=== PATIENT | female | born 1990 ===

== ENCOUNTER 2021-12-06 16:16 | Emergency (ER) | payer OTHER ==
--- NOTE | 2021-12-06 17:34 | XRay Report ---
Right hand 2 views INDICATION: Right hand pain. IMPRESSION: There is a focal laceration involving the left fifth finger. No underlying fracture or minaya bluxation is identified. Signer Name: Abraham Akins MD Signed: 12/06/2021 5:30 PM Workstation Name: [id number]
[2021-12-06] MEDS ORDERED: BUPIVACAINE/PF (0.5%) 5 MG/1 ML 10 ML VIAL INFILTRATI ONE (22:06)
--- NOTE | 2021-12-06 23:46 | Emergency Department Report ---
ED Laceration HPI - HPI Chief Complaint: Laceration/Recheck/Suture Stated Complaint: CUT FINGER Time Seen by Provider: 12/06/21 21:58 Occurred When: Today Location: Upper Extremity Severity: mild Tetanus Status: Up to Date Laceration Symptoms: Yes Pain Other History: Presents emerged department after accidentally cutting the palm of the fifth phalange E with a knife. ED Review of Systems ROS: Stated complaint: CUT FINGER Other details as noted in HPI Comment: All other systems reviewed and negative Laceration Physical Exam - Exam General: Vital signs noted. No distress. Alert and acting appropriately. Wound Length (cm): 1 Laceration Location: Upper Extremity Full Body Front + Back: 1 - Linear laceration to the palmar aspect of the phalanges Laceration Exam: Yes Normal Distal CMS, No Foreign Body, No Exposed Tendon, Vessel, or Nerve, No Tendon Injury ED Course Vital Signs 12/06/21 17:03 Temperature 98.2 F Pulse Rate 69 Respiratory 16 Rate Blood Pressure 115/59 O2 Sat by Pulse 98 Oximetry - Laceration /Wound Repair Right Finger Wound Location: upper extremity Wound Length (cm): 1 Wound's Depth, Shape: linear Wound Explored: clean Irrigated w/ Saline (ccs): 50 Anesthesia: 1% Lidocaine Wound Debrided: minimal Wound Repaired With: sutures Suture Size/Type: 5:0, nylon Number of Sutures: 3 Layer Closure?: No Sterile Dressing Applied?: Yes Critical care attestation.: If time is entered above; I have spent that time in minutes in the direct care of this critically ill patient, excluding procedure time. ED Disposition Clinical Impression: Finger laceration Disposition: 01 HOME / SELF CARE / HOMELESS Is pt being admited?: No Does the pt Need Aspirin: No Condition: Stable Instructions: Laceration Care, Adult, Sutured Wound Care, [id number] Additional Instructions: Seen and evaluated today for wound laceration please be sure to follow-up with 7 to 10 days to be evaluated for suture removal Referrals: [facility] [Provider Group] - 3-5 Days
[2021-12-07] MEDS ORDERED: TETANUS,DIPH,PERTUSS(ACELL) VACCINE 0.5 ML SYRINGE IM ONE (00:22)
[2021-12-07 00:38] VITALS: BP 122/77
== END 2021-12-07 00:58 | disposition home or self-care (01) ==
LOC: EDBD → ED 16:16
DX: S61.219A Laceration without foreign body of unspecified finger without damage to nail, initial encounter (principal); W45.8XXA Other foreign body or object entering through skin, initial encounter; Y93.89 Activity, other specified; Y92.89 Other specified places as the place of occurrence of the external cause; Y99.8 Other external cause status
CPT/HCPCS: 12001; 73120; 99283; J3490